=== PATIENT | female | born 1955 ===

== ENCOUNTER 2019-05-13 01:56 | Emergency (ER) | payer SELFPAY ==
[2019-05-13] MEDS ORDERED: ONDANSETRON 4 MG/2 ML VIAL ONE (02:32)
[2019-05-13] MEDS ORDERED: MEPERIDINE HCL 25 MG/0.5 ML ONE ×2 (02:32→03:10)
[2019-05-13 03:22] LABS: Absolute Lymphocytes (CBC) 2.1 K/uL (0.7-4.9); Basophils % 0.2 % (0-1.3); Hematocrit 38.5 % (36.0-45.0); Lymphocytes % 20.9 % (15.3-44.8); MPV 9.4 fL (7.6-11.3); RBC Red Blood Cell Count 4.44 M/uL (3.86-4.86)
[2019-05-13 03:37] LABS: Potassium 3.9 mmol/L (3.5-5.1)
[2019-05-13] MEDS ORDERED: PROMETHAZINE INJ 25 MG/ML AMP ONE (04:16)
--- NOTE | 2019-05-13 05:13 | ER ---
Nurse's Notes [facility] Name: Loulou Kerr Age: 64 yrs Sex: Female : 1955 Arrival Date: 05/13/2019 Time: 01:58 Bed 7 Private MD: Diagnosis: Fracture of first lumbar vertebra;Muscle spasm of back Presentation: 05/13 02:06 Risk Assessment: Do you want to hurt yourself or someone else? Patient reports no ea desire to harm self or others. 02:06 Acuity: REMY 3 ea 02:06 Chief complaint: Patient states: my back is killing me it hurts a lot. Patient's son or rr5 daughter states: she had fall last Friday, we went to dr. vilchis and prescribed with pain medication, then last Friday she cannot tolerate the pain we went to [facility] given some pain medication but she is still in pain after the medicine wear off. 02:06 Coronavirus screen: The patient has NOT traveled to [place] in the past 14 days. Proceed rr5 with normal triage procedures. Ebola Screen: Patient negative for fever greater than or equal to 101.5 degrees Fahrenheit, and additional compatible Ebola Virus Disease symptoms Patient denies exposure to infectious person. Patient denies travel to an Ebola-affected area in the 21 days before illness onset. Initial Sepsis Screen: Does the patient meet any 2 criteria? No. Patient's initial sepsis screen is negative. Does the patient have a suspected source of infection? No. Patient's initial sepsis screen is negative. 02:06 Method Of Arrival: Wheelchair rr5 02:06 Onset of symptoms was May 08, 2019. rr5 Historical: - Allergies: 02:06 No Known Allergies; rr5 - Home Meds: 02:06 gabapentin oral oral [Active]; Indomethacin Oral [Active]; Tramadol Oral [Active]; rr5 amlodipine oral [Active]; Baclofen Oral [Active]; Aspirin Oral [Active]; ciruelax [Active]; 02:28 insulin [Active]; rr5 - PMHx: 02:06 Hypertension; CVA; rr5 02:28 Diabetes - IDDM; rr5 - PSHx: 02:06 abdominal surgery; rr5 - Immunization history:: Adult Immunizations up to date. - Social history:: Smoking status: unknown Patient/guardian denies using alcohol, street drugs. - Family history:: not pertinent. - Hospitalizations: : No recent hospitalization is reported. Screenin:25 Abuse screen: Denies threats or abuse. Denies injuries from another. Nutritional rr5 screening: No deficits noted. Tuberculosis screening: No symptoms or risk factors identified. Fall Risk Fall in past 12 months (25 points). IV access (20 points). Gait- Impaired (20 pts.). Total Concepcion Fall Scale indicates High Risk Score (45 or more points). Fall prevention measures have been instituted. Side Rails Up X 2 Placed Close to Nursing Station Frequent Obs/Assessments Occuring Family Present and informed to notify staff if the need to leave the bedside As available patient and family educated on Fall Prevention Program and Strategies. Assessment: 02:10 General: Appears in no apparent distress. uncomfortable, Behavior is calm, cooperative, rr5 appropriate for age. 02:10 Pain: Complains of pain in right low back Pain does not radiate. Pain currently is 10 rr5 out of 10 on a pain scale. Quality of pain is described as aching, Pain began gradually, Is intermittent. Neuro: Level of Consciousness is awake, alert, obeys commands, Oriented to person, place, time, situation, Appropriate for age. Cardiovascular: Capillary refill < 3 seconds Patient's skin is warm and dry. Respiratory: Airway is patent Respiratory effort is even, unlabored, Respiratory pattern is regular, symmetrical. GI: Abdomen is round Reports nausea, vomiting. : No signs and/or symptoms were reported regarding the genitourinary system. EENT: No signs and/or symptoms were reported regarding the EENT system. Derm: Skin is intact, is healthy with good turgor, Skin temperature is warm. Musculoskeletal: Circulation, motion, and sensation intact. Capillary refill < 3 seconds, Reports pain in right low back and right arm Pain is 10 out of 10 on a pain scale. 02:54 Reassessment: Patient appears in no apparent distress at this time. Patient is alert, rr5 oriented x 3, equal unlabored respirations, skin warm/dry/pink. Patient states symptoms have improved. 03:30 Reassessment: O2 saturation went down to 85-88%. patient not feeling any discomfort or rr5 SOB. hooked to oxygen at 3 liter via nasal cannula. 04:10 Reassessment: Patient appears in no apparent distress at this time. came back from CT rr5 scan complaining of nausea and back pain. ED provider aware with order made and carried out. 04:40 Reassessment: Patient appears in no apparent distress at this time. Patient is alert, rr5 oriented x 3, equal unlabored respirations, skin warm/dry/pink. Patient states symptoms have improved. 05:22 Reassessment: Patient appears in no apparent distress at this time. Patient is alert, rr5 oriented x 3, equal unlabored respirations, skin warm/dry/pink. ED provider explained the results. patient still in pain when moving, discharge instruction given and explained without complaints made. Vital Signs: 02:06 BP 168 / 81; Pulse 79; Resp 19; Temp 98.5; Pulse Ox 99% ; Weight 104.33 kg; Height 5 rr5 ft. 0 in. (152.40 cm); Pain 10/10; 02:51 BP 155 / 57; Pulse 72; Resp 18; Pulse Ox 97% ; rr5 03:11 BP 164 / 65; Pulse 76; Resp 17; Pulse Ox 98% ; rr5 03:30 BP 155 / 26; Pulse 74; Resp 15; Pulse Ox 85% on R/A; Pain 0/10; rr5 03:32 Pulse Ox 95% on 3 lpm NC; rr5 04:30 BP 179 / 105; Pulse 80; Resp 17; Pulse Ox 99% on 2 lpm NC; rr5 05:20 BP 171 / 72; Pulse 70; Resp 19; Temp 98; Pulse Ox 99% on R/A; rr5 02:06 Body Mass Index 44.92 (104.33 kg, 152.40 cm) rr5 ED Course: 01:58 Patient arrived in ED. ag3 01:59 Reji Barry, RN is Primary Nurse. rr5 01:59 Samuel Lawrence MD is Attending Physician. rn 02:06 Triage completed. ea 02:06 Arm band placed on right wrist. rr5 02:10 Patient has correct armband on for positive identification. Placed in gown. Bed in low rr5 position. Call light in reach. Side rails up X2. Pulse ox on. NIBP on. 02:40 No provider procedures requiring assistance completed. Inserted saline lock: 22 gauge rr5 in left forearm, using aseptic technique. ,using aseptic technique. inserted by [facility] Blood collected. 03:06 Basic Metabolic Panel Sent. ds4 03:06 CBC with Diff Sent. ds4 03:20 Radiology exam delayed due to lab results not completed at this time. (BUN/Creatinine). 04:25 CT Abd/Pelvis - IV Contrast Only In Process Unspecified. EDMS 05:23 IV discontinued, intact, bleeding controlled, No redness/swelling at site. Pressure rr5 dressing applied. Administered Medications: 02:45 Drug: Zofran (Ondansetron) 4 mg Route: IVP; Site: left forearm; rr5 03:35 Follow up: Response: No adverse reaction rr5 02:47 Drug: Demerol 25 mg {Note: rass 0.} Route: IVP; Site: left forearm; rr5 03:11 Follow up: Response: No adverse reaction; Pain is decreased; RASS: Alert and Calm (0) rr5 03:11 Drug: Demerol 25 mg {Note: rass 0.} Route: IVP; Site: left forearm; rr5 03:50 Follow up: Response: No adverse reaction; Pain is decreased; RASS: Alert and Calm (0) rr5 04:17 Drug: Phenergan 12.5 mg Route: IVP; Site: left forearm; rr5 05:20 Follow up: Response: No adverse reaction rr5 Outcome: 05:12 Discharge ordered by . rn 05:23 Discharged to home via wheelchair, with family. rr5 05:23 Condition: stable 05:23 Discharge instructions given to patient, family, Instructed on discharge instructions, follow up and referral plans. Demonstrated understanding of instructions, follow-up care. 05:25 Patient left the ED. rr5 Signatures: Dispatcher [employer] EDNJ Manoj Salvador Samuel Lawrence MD MD rn Swanson, Donovan ds4 Rima Perez RN RN ea Gomez, Alice 3 Reji Barry, RN RN rr5 Corrections: (The following items were deleted from the chart) 02:51 02:06 PMHx: Diabetes - NIDDM; rr5 rr5 05:31 05:22 Reassessment: Patient appears in no apparent distress at this time. Patient is rr5 alert, oriented x 3, equal unlabored respirations, skin warm/dry/pink. ED provider explained the results. discharge instruction given and explained without complaints made. rr5
--- NOTE | 2019-05-13 05:13 | EDPHYS ---
Physician Documentation [facility] Name: Loulou Kerr Age: 64 yrs Sex: Female : 1955 Arrival Date: 05/13/2019 Time: 01:58 Bed 7 Private MD: ED Physician Samuel Lawrence HPI: 05/13 02:28 This 64 yrs old Female presents to ER via Wheelchair with complaints of Back rn Pain, Vomiting. 02:28 The symptoms are located in the low back. Onset: The symptoms/episode began/occurred 5 rn day(s) ago. The pain does not radiate. Associated signs and symptoms: Pertinent positives: nausea, vomiting, Pertinent negatives: chest pain, dysuria, fever, hematuria, incontinence, nausea, numbness, tingling, weakness. Modifying factors: The patient symptoms are alleviated by nothing, the patient symptoms are aggravated by any movement. Severity of symptoms: At their worst the symptoms were moderate, in the emergency department the symptoms are unchanged. The patient has not experienced similar symptoms in the past. The patient has been recently seen by a physician:. Seen a few days ago at [facility] after a fall, reports landed on right arm and right hip, had negative bloodwork and xrays. Reports given pain medication and sent home, didn't get better, saw pcp who gave her stronger pain meds. Came tonight because pain still not better, worse with movement and palpation. NO hematuria. No midline spinal pain.. Historical: - Allergies: 02:06 No Known Allergies; rr5 - Home Meds: 02:06 gabapentin oral oral [Active]; Indomethacin Oral [Active]; Tramadol Oral [Active]; rr5 amlodipine oral [Active]; Baclofen Oral [Active]; Aspirin Oral [Active]; ciruelax [Active]; 02:28 insulin [Active]; rr5 - PMHx: 02:06 Hypertension; CVA; rr5 02:28 Diabetes - IDDM; rr5 - PSHx: 02:06 abdominal surgery; rr5 - Immunization history:: Adult Immunizations up to date. - Social history:: Smoking status: unknown Patient/guardian denies using alcohol, street drugs. - Family history:: not pertinent. - Hospitalizations: : No recent hospitalization is reported. ROS: 02:28 Constitutional: Negative for fever, chills, and weight loss, Eyes: Negative for injury, rn pain, redness, and discharge, Neck: Negative for injury, pain, and swelling, Cardiovascular: Negative for chest pain, palpitations, and edema, Respiratory: Negative for shortness of breath, cough, wheezing, and pleuritic chest pain, Abdomen/GI: Negative for abdominal pain,diarrhea, and constipation, Back: + right lower back pain : Negative for injury, bleeding, discharge, and swelling, MS/Extremity: Negative for injury and deformity, Skin: Negative for injury, rash, and discoloration, Neuro: Negative for headache, weakness, numbness, tingling, and seizure. Exam: 02:28 Constitutional: This is a well developed, well nourished patient who is awake, alert, rn appears uncomfortable and slow to get into bed Head/Face: Normocephalic, atraumatic. Respiratory: Speaking full sentences. No increased work of breathing, no retractions or nasal flaring. Abdomen/GI: soft, non-tender Back: No spinal tenderness. No costovertebral tenderness. + right lower back perilumbar tenderness without ecchymosis or swelling. Skin: Warm, dry, no open wounds MS/ Extremity: Pulses equal, no cyanosis. Neurovascular intact. Full, normal range of motion. Equal circumference. Neuro: Awake and alert, GCS 15, oriented to person, place, time, and situation. Motor strength 5/5 in all extremities. Sensory grossly intact. Vital Signs: 02:06 BP 168 / 81; Pulse 79; Resp 19; Temp 98.5; Pulse Ox 99% ; Weight 104.33 kg; Height 5 rr5 ft. 0 in. (152.40 cm); Pain 10/10; 02:51 BP 155 / 57; Pulse 72; Resp 18; Pulse Ox 97% ; rr5 03:11 BP 164 / 65; Pulse 76; Resp 17; Pulse Ox 98% ; rr5 03:30 BP 155 / 26; Pulse 74; Resp 15; Pulse Ox 85% on R/A; Pain 0/10; rr5 03:32 Pulse Ox 95% on 3 lpm NC; rr5 04:30 BP 179 / 105; Pulse 80; Resp 17; Pulse Ox 99% on 2 lpm NC; rr5 05:20 BP 171 / 72; Pulse 70; Resp 19; Temp 98; Pulse Ox 99% on R/A; rr5 02:06 Body Mass Index 44.92 (104.33 kg, 152.40 cm) rr5 MDM: 01:59 Patient medically screened. rn 05:08 Differential diagnosis: Fracture Ligament Injury Osteoarthritis muscle spasm/strain. rn Data reviewed: vital signs, nurses notes, lab test result(s), radiologic studies, CT scan, and as a result, I will discharge patient. Counseling: I had a detailed discussion with the patient and/or guardian regarding: the historical points, exam findings, and any diagnostic results supporting the discharge/admit diagnosis, lab results, radiology results, the need for outpatient follow up, to return to the emergency department if symptoms worsen or persist or if there are any questions or concerns that arise at home. Response to treatment: the patient's symptoms have mildly improved after treatment, and as a result, I will discharge patient. Special discussion: I discussed with the patient/guardian in detail that at this point there is no indication for admission to the hospital. It is understood, however, that if the symptoms persist or worsen the patient needs to return immediately for re-evaluation. Based on the history and exam findings, there is no indication for further emergent testing or inpatient evaluation. I discussed with the patient/guardian the need to see the back specialist for further evaluation of the symptoms. I discussed with the patient/guardian the need to see the primary care provider for further evaluation of the symptoms. ED course: CT shows superior endplate fracture L1, no retropulsion or high loss. Spoke with patient regarding distended bladder, states uses diapers, has not had problems urinated, feels like she empties, but while here has been reluctant to go to bathroom and is only urinating small amounts at a time on purpose because she wasn't sure when she could change her diaper. Will dc home with rest, early mobilization, OTC anti-inflammatories, and can take pain meds and muscle relaxer that her PCP and [facility] gave her. . 05/13 02:16 Order name: CBC with Diff; Complete Time: 03:28 rn 05/13 02:16 Order name: Basic Metabolic Panel; Complete Time: 03:39 rn 05/13 02:16 Order name: CT Abd/Pelvis - IV Contrast Only rn 05/13 02:16 Order name: IV Start; Complete Time: 02:48 rn Administered Medications: 02:45 Drug: Zofran (Ondansetron) 4 mg Route: IVP; Site: left forearm; rr5 03:35 Follow up: Response: No adverse reaction rr5 02:47 Drug: Demerol 25 mg {Note: rass 0.} Route: IVP; Site: left forearm; rr5 03:11 Follow up: Response: No adverse reaction; Pain is decreased; RASS: Alert and Calm (0) rr5 03:11 Drug: Demerol 25 mg {Note: rass 0.} Route: IVP; Site: left forearm; rr5 03:50 Follow up: Response: No adverse reaction; Pain is decreased; RASS: Alert and Calm (0) rr5 04:17 Drug: Phenergan 12.5 mg Route: IVP; Site: left forearm; rr5 05:20 Follow up: Response: No adverse reaction rr5 Disposition: 05/13/19 05:12 Discharged to Home. Impression: Fracture of first lumbar vertebra, Muscle spasm of back. - Condition is Stable. - Discharge Instructions: Spinal Compression Fracture, Muscle Cramps and Spasms, Back Exercises, [id number], Heat Therapy. - Medication Reconciliation Form, Thank You Letter, Antibiotic Education, Prescription Opioid Use form. - Follow up: Private Physician; When: As needed; Reason: Recheck today's complaints, Re-evaluation by your physician. - Problem is an ongoing problem. - Symptoms have improved. Signatures: Dispatcher [employer] EDMS Samuel Lawrence MD MD rn Antunez, Elena, RN RN ea Roque, Raymond RN RN rr5 Corrections: (The following items were deleted from the chart) 02:51 02:06 PMHx: Diabetes - NIDDM; rr5 rr5 05:12 05:12 05/13/2019 05:12 Discharged to Home. Impression: Fracture of first lumbar rn vertebra. Condition is Stable. Forms are Medication Reconciliation Form, Thank You Letter, Antibiotic Education, Prescription Opioid Use. Follow up: Private Physician; When: As needed; Reason: Recheck today's complaints, Re-evaluation by your physician. Problem is an ongoing problem. Symptoms have improved. rn 05:25 05:12 05/13/2019 05:12 Discharged to Home. Impression: Fracture of first lumbar rr5 vertebra; Muscle spasm of back. Condition is Stable. Forms are Medication Reconciliation Form, Thank You Letter, Antibiotic Education, Prescription Opioid Use. Follow up: Private Physician; When: As needed; Reason: Recheck today's complaints, Re-evaluation by your physician. Problem is an ongoing problem. Symptoms have improved. rn
[2019-05-13 05:42] VITALS: BP 171/72; TEMP 98; O2SAT 99
--- NOTE | 2019-05-13 10:40 | RAD REPORT ---
EXAM DESCRIPTION: CT - Abdomen Pelvis W Contrast - 05/13/2019 6:48 am CLINICAL HISTORY: The patient is 64 years old and is Female; right flank/back pain s/p fall/trauma TECHNIQUE: Axial computed tomography images of the abdomen and pelvis with intravenous contrast. S agittal and coronal reformatted images were created and reviewed. This CT exam was performed using one or more of the following dose reduction techniques: automated exposure control, adjustment of t he mA and/or kV according to patient size, and/or use of iterative reconstruction technique. COMPARISON: No relevant prior studies available. FINDINGS: LUNG BASES: Minimal dependent densities in the lung bases are present. PLEURAL SPACE: Trace left pleural effusion is present. Trace right pleural effusion is present . ABDOMEN: LIVER: Unremarkable. No mass. GALLBLADDER AND BILE DUCTS: The gallbladder is distended. PANCREAS: The pancreas is atrophic. SPLEEN: Unremarkable. ADRENALS: Unremarkable. No mass. KIDNEYS AND URETERS: Minimal nonspecific perinephric and periureteral stranding and fluid is not ed. STOMACH AND BOWEL: Stomach is minimally fluid filled. The small bowel is relatively normal in ca liber. Stool is present throughout colon. There is no bowel obstruction. PELVIS: APPENDIX: The appendix is normal in caliber without surrounding inflammation. BLADDER: The bladder is significantly distended. REPRODUCTIVE: Unremarkable as visualized. ABDOMEN and PELVIS: INTRAPERITONEAL SPACE: Unremarkable. No free air. No significant fluid collection. BONES/JOINTS: Multilevel degenerative change of the spine is present. Acute fracture of the laughlin perior endplate of L1 is present. There is no height loss or evidence of retropulsion. No other fract ure is noted of the visualized axial and appendicular skeleton. SOFT TISSUES: The soft tissues are normal. VASCULATURE: Atherosclerosis of the vasculature is present. The vessels are normal in caliber. No abdominal aortic aneurysm. LYMPH NODES: Unremarkable. No enlarged lymph nodes. IMPRESSION: 1. Acute fracture of the superior endplate of L1 without evidence of retropulsion or h igh loss. 2. Significantly distended bladder with resultant mild bilateral hydroureter. No obstructing calcul us is seen. Electronically signed by: Rosa M Young MD 05/13/2019 4:35 AM DATA ACQUISITION TECHNICIAN Due to temporary technical issues with the PACS/Fluency reporting system, reports are being signed by the in house radiologist as a courtesy to ensure prompt reporting. The interpreting radiologist is f ully responsible for the content of the report.
== END 2019-05-13 05:25 | disposition home or self-care (01) ==
LOC: ER 01:56
DX: S32.019A Unspecified fracture of first lumbar vertebra, initial encounter for closed fracture (principal); M62.830 Muscle spasm of back; W19.XXXA Unspecified fall, initial encounter; Z79.82 Long term (current) use of aspirin; Z79.4 Long term (current) use of insulin; I10 Essential (primary) hypertension; E11.9 Type 2 diabetes mellitus without complications
CPT/HCPCS: 36415; 74177; 80048; 85025; 96374; 96375; 99284; J2175; J2405; J2550; Q9967